=== PATIENT | female | born 1970 | race Caucasian/White ===

== ENCOUNTER 2016-08-09 19:21 | Emergency (ER) | payer OTHER ==
[~2016-08-09] VITALS: Ht 172.7 cm; Wt 72.7 kg
[2016-08-09 19:30] VITALS: BP 143/90; PULSE 83; RESP 16; O2SAT 100
--- NOTE | 2016-08-09 19:47 | ED.REPORT ---
HPI-Extremity Problem Upper Date of Service Aug 09, 2016 ED Provider: Nathalie Vilchis History of Present Illness: remodeling house, left shoulder pain for 4 days. no primary care care. primary care was grierson. taking alleve and tylenol ice and heat. 08/31 right hand dominant Nursing Notes Stated Complaint: LEFT SHOULDER PAIN Chief Complaint: Extremity Trauma Nursing Notes Reviewed: Yes Allergies: Coded Allergies: codeine (Verified Allergy, Severe, Anaphylaxis, 08/09/16) Sulfa (Sulfonamide Antibiotics) (Verified Allergy, Unknown, rash, 08/09/16) No Active Prescriptions or Reported Meds General Time Seen by MD: 19:41 Chief Complaint Shoulder injury left Severity: Current: Pain level 7 out of 10 Past Medical History Past Medical History Reports: Asthma Past Surgical History Multiple female surgeries, "I've had 37 surgeries" Reports: Hysterectomy Family History Noncontributory Smoking History Current Every Day Smoker Social History History of heroin use Alcohol Use: Denies alcohol use Drug Use: IV drugs Other Social History: Local resident Occupation lives with son Ambulatory Status Independent Review of Systems Basic Review of Systems Eyes: Vision NL, No discharge : No dysuria, No frequency Psychiatric: Normal thought content Physical Exam Initial Vital Signs Vital Signs (First) Date Time Temp Pulse Resp B/P Pulse Ox O2 Delivery O2 Flow Rate FiO2 08/09/16 19:30 36.8 83 16 143/90 100 Room Air Initial VS: Reviewed, Vital signs normal General/Constitutional: Well-developed, Well-nourished Head / Eyes: Atraumatic, Normocephalic, PERRL ENT: Mucous membranes moist, Conjunctiva normal, No scleral icterus Neck: Supple, Non-tender, Full range of motion Respiratory: Breath sounds normal, Clear to auscultation, No respiratory distress Cardiovascular: Regular rate & rhythm, Heart sounds normal, Intact distal pulses Abdomen / GI: Soft, Non-tender, No guarding, No rebound, No distention Back: No CVA tenderness Lymphatic: No lymphadenopathy Lower Extremities: Vascular intact, Neuro intact, No swelling, No tenderness Skin: Warm, Dry, No cyanosis Neurologic: Alert, Oriented, Nonfocal Psychiatric: Mood/affect normal, Behavior normal, Normal thought content General/Constitutional: Awake, Alert, No acute distress Respiratory / Chest: Atraumatic, Breath sounds NL, Breath sounds = bilat, No respiratory distress Cardiovascular: Heart rate NL, Regular rhythm, Heart sounds NL, No gallop patient indicates pain is in belly of the deltoid. Motor Driver strength is equal. No sign of increased warmth or soft tissue swelling or crepitus Re-Eval/Medical Decision Med Decision/Clinical Course 45 year old female presents for evualation of left shoulder pain while working on remodeling her entire house. Exam is reassuring. No sign of crepitus, cellulitis, compartment syndrome or fracture. Discharge & Departure Impression: Primary Impression: Overuse syndrome Disposition: Home Additional Instructions: The exam is reassuring. Wear the sling for 3 to 4 days. Need to take the arm out of the sling at least 3 times an hour for 5 minutes each time and make circles and do wall walking. Need to take a break from remodeling till your arm feels better. You received a dose of toradol and dexamethasone in the ER. Continue with dexamethasone 10 mg daily for 3 days. After the dexamethasone start ibuprofen 800 mg up to 3 times a day for 5 days. Need to establish in primary care. Consider the [facility]. I am sorry this has happened. Referrals: [facility] EDSupervising Provider for APC: Gerard Melissa MD copies to: [facility] aNthalie Vilchis Aug 09, 2016 19:47
[2016-08-09] MEDS ORDERED: Dexamethasone 10 mg/mL Inj IVPUSH ONE (19:55)
[2016-08-09 20:58] VITALS: BP 130/84; PULSE 82; RESP 16; O2SAT 99
== END 2016-08-09 20:59 | disposition home or self-care (01) ==
LOC: SED 19:21
DX: M70.812 Other soft tissue disorders related to use, overuse and pressure, left shoulder (principal); J45.909 Unspecified asthma, uncomplicated; F17.200 Nicotine dependence, unspecified, uncomplicated; Z88.2 Allergy status to sulfonamides; Z88.5 Allergy status to narcotic agent
CPT/HCPCS: 96372; 96374; 99284; J1100; J1885

== ENCOUNTER 2016-11-19 13:53 | Emergency (ER) | payer OTHER ==
[~2016-11-19] VITALS: Ht 170.2 cm; Wt 73.6 kg
[2016-11-19 14:09] VITALS: BP 113/78; PULSE 91; RESP 18; O2SAT 98
--- NOTE | 2016-11-19 14:57 | ED.REPORT ---
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 She reports it developed over the last 2 days. She additionally complains of pain in her right shoulder that is aggravated by motion. She reports increased activity in the last several days. Denies fever, chills, abdominal pain, vomiting, racing heart. Nursing Notes Stated Complaint: ABSCESS ON RIGHT ARM,COLLERBONE PAIN Chief Complaint: Skin Rash/Abscess Nursing Notes Reviewed: Yes Allergies: Coded Allergies: codeine (Verified Allergy, Severe, Anaphylaxis, 11/19/16) Sulfa (Sulfonamide Antibiotics) (Verified Allergy, Unknown, rash, 11/19/16) No Active Prescriptions or Reported Meds General Time Seen by MD: 14:38 Chief Complaint Abscess Past Medical History Past Medical History Reports: Asthma Past Surgical History Multiple female surgeries, "I've had 37 surgeries" Reports: Hysterectomy Family History Noncontributory Smoking History Current Every Day Smoker Social History History of heroin use Alcohol Use: Denies alcohol use Drug Use: IV drugs Other Social History: Local resident Occupation lives with son Ambulatory Status Independent Review of Systems Review of Systems Note: Negative unless stated otherwise in history of present illness Physical Exam General: Well appearing, well developed, well nourished, no acute distress. Right arm: 3 cm area of raised redness and fluctuance on the proximal forearm, minimal associated tenderness. No discharge. Radial pulse 2+. Neurovascularly intact distal. Right shoulder: Normal to inspection, excellent range of motion, tender over the belly of the trapezius muscle Head: Atraumatic, normocephalic. Eyes: No scleral icterus or injection. No discharge. Vision grossly intact. ENT: Voice clear, hearing grossly intact. Respiratory: Regular rate and rhythm. Breath sounds present, clear to auscultation and equal bilaterally. No respiratory distress. No increased work of breathing, speaks in complete sentences. Cardiovascular: Regular rate and rhythm, without murmur, gallop or rub. No pedal edema. Skin: Warm and dry. Neurological: Grossly nonfocal. Psychological: Alert and oriented. Speech appropriate, linear and logical. Behavior appropriate. Initial Vital Signs Vital Signs (First) Date Time Temp Pulse Resp B/P Pulse Ox O2 Delivery O2 Flow Rate FiO2 11/19/16 14:09 36.4 91 18 113/78 98 Room Air Normal Re-Eval/Medical Decision Med Decision/Clinical Course 46-year-old female who recently discontinued smoking and heroin. His emergency department concerned for an abscess on her right forearm as well as pain in her right shoulder. Reports that the abscess has grown steadily over the last 2 days. Denies systemic symptoms. Physical examination reveals a moderate size abscess on the proximal left forearm, with redness, swelling, fluctuance and tenderness. Right shoulder is normal to inspection with excellent range of motion and tenderness over the belly of the trapezius muscle. Neurovascularly intact distal. Otherwise benign examination with normal vital signs. I met with and examined this patient, however was unable to immediately incise and drain the abscess on her forearm. When I checked on the patient she seemed to be waiting patiently, however when I returned to perform incision and drainage she had departed. I believe she is competent to make this decision I believe she has muscular right shoulder pain and I am not concerned about fracture or dislocation. I believe she has an abscess on her forearm and I'm not concerned about systemic illness. Discharge & Departure Departure Notes This patient departed prior to receiving treatment for the abscess on her left arm. I believe she is competent to make this decision. Impression: Primary Impression: Abscess Additional Impression: Right shoulder pain Chronicity: unspecified Qualified Code: M25.511 - Pain in right shoulder Referrals: [facility] (PCP) Les Judge PA-C Nov 19, 2016 14:57
== END 2016-11-19 16:30 | disposition left against medical advice (07) ==
LOC: SED 13:53
DX: L02.413 Cutaneous abscess of right upper limb (principal); M25.511 Pain in right shoulder; J45.909 Unspecified asthma, uncomplicated; F17.200 Nicotine dependence, unspecified, uncomplicated; Z88.2 Allergy status to sulfonamides; Z88.5 Allergy status to narcotic agent; Z90.710 Acquired absence of both cervix and uterus